=== PATIENT | female | born 1955 | race Caucasian/White ===

== ENCOUNTER 2022-01-14 17:03 | Observation (INO) ==
--- NOTE | 2022-01-14 17:30 | Emergency Department Note ---
HPI General Chief complaint: Urogenital-Female Stated complaint: anxiety, UTI, not feeling herself Time Seen by Provider: 01/14/22 17:07 Source: patient and EMS Mode of arrival: EMS Limitations: no limitations History of Present Illness HPI Narrative: Narrative: 66 yo F w/ h/o recurrent UTI, anxiety, seasonal allergies p/w RUE paresthesia, generalized weakness, shakiness, and dysuria. She reports that she has had multiple recent visits to urgent/minor care w/ UTI Sx, primarily dysuria. She has recently completed a course of cipro and felt well, but then last night started to have recurrent dysuria and bladder pain after voiding. Today, she began to feel weak (which she reports is generalized) and shaky, and then developed RUE paresthesia, which has been constant since onset w/ no aggravating/alleviating factors. The onset of Sx was sometime between noon and 14:00, she cannot be sure of exactly when in that time frame. Subsequently she felt anxious. She presented to minor care where she was noted to be diaphoretic and tachycardic and was sent here for further evaluation. Related Data Home Medications Medication Instructions Recorded Confirmed diphenhydramine HCl 25 mg capsule 50 mg PO QHS PRN 12/12/20 01/14/22 (Benadryl) melatonin 5 mg capsule 5 mg PO HS PRN cap 12/12/20 01/14/22 Allergy (diphenhydramine) 50 mg Q8H PRN 01/14/22 01/14/22 Allergies Allergy/AdvReac Type Severity Reaction Status Date / Time Penicillins Allergy Unknown Too long Verified 01/14/22 17:06 ago to remember. Streptomycin Allergy Unknown Too long Verified 01/14/22 17:06 ago to remember Sulfa (Sulfonamide Allergy Unknown Too long Verified 01/14/22 17:06 Antibiotics) ago to remember codeine AdvReac Mild Nausea/vomi Verified 01/15/22 05:44 ting gluten AdvReac Mild Pass out Verified 01/15/22 05:44 morphine AdvReac Mild Hallucinati Verified 01/15/22 05:44 ng Review of Systems ROS ROS Narrative: Narrative: All systems ED: reviewed and negative except as stated. [facility] Narrative Patient History Narrative: Narrative: Medical/Surgical/Family History All Active Problems (Updated 01/14/22 @ 18:29 by Sina Dominguez MD) Paresthesia of right upper extremity (Acute) Dysuria (Acute) Generalized weakness (Acute) Anxiety (Acute) UTI (urinary tract infection) (Acute) Pharyngitis (Acute) Elevated blood pressure reading in office without diagnosis of hypertension (Acute) Anxiety and depression (Acute) Grief at loss of child (Acute) Encounter for Papanicolaou smear of cervix (Acute) Pharyngitis (Acute) Atypical chest pain (Acute) Anxiety about health (Acute) Swelling of throat (Acute) Throat discomfort (Acute) Medicare annual wellness visit, initial (Acute) Vaginal pruritus (Acute) Dysuria (Acute) Urinary tract infection (Acute 07/05/08) Seizures (Chronic) Postmenopausal bleeding (Chronic) Ovarian cyst (Chronic) Fibroid, uterine (Chronic) Allergic rhinitis (Chronic) Vasovagal syncope (Chronic) Medical History Allergic rhinitis hay fever Burn Recorded 06/12/11 Palmer from hot water and vegetables on her chest and the sternal and left medial breast area, healing. Fibroid, uterine 2008 Gastric ulcer, chronic Unspecified type Medicare annual wellness visit, initial Ovarian cyst Cysts x 2. 1 on the right, 1.1, and the cyst on the left was 0.4. Postmenopausal bleeding 2007 Post menopausal spotting x 1. Seizures As a child. Urinary tract infection (07/05/08) UTI (urinary tract infection) Vasovagal syncope Surgical History History of appendectomy History of cholecystectomy Recorded 06/12/11 History of colonoscopy In about 2002. Says she won't do another one History of ovarian resection Recorded 06/12/11 Wedge resection. With infertility difficulties. History of tonsillectomy Family History Father Pavel's disease Unknown Crohn's disease Essential hypertension Disorder of metabolism hypoglycemia, unspecified Sister , from HF Cardiac disease Mother Acute myocardial infarction Myelodysplastic syndrome Social History Smoking Status: Never smoker Alcohol Intake Frequency: a few times a month Substance Use: does not use Exam Narrative Narrative: Narrative: General Limitations: no limitations General appearance: Present alert and in no apparent distress Head Head: Present atraumatic and normocephalic Eye Eye: Present normal appearance, PERRL and EOMI; Absent nystagmus ENT ENT: Present normal oropharynx and mucous membranes moist Neck Neck: Present normal inspection Chest Chest: Present normal inspection and symmetric chest wall rise Respiratory Respiratory: Present normal lung sounds bilaterally; Absent respiratory distress or accessory muscle use Cardiovascular Cardiovascular: Present regular rate, normal rhythm, +S1, +S2 and other (2+ B/L radial and DP pulses); Absent systolic murmur or diastolic murmur Adbominal Abdominal: Present soft and normal bowel sounds; Absent distention or tenderness Extremities Extremities: Absent pedal edema Neurological Neurological: Present alert, oriented X3 and other (NIHSS - 1 (decreased sensation over entire RUE). No facial droop, tongue deviation, no aphasia/dysarthria, visual pablo intact, intact sensation other than mild decrease RUE, intact strength all 4 limbs, intact finger-nose and heel-carlos, no neglect) Psychiatric Psychiatric: Present anxious Skin Skin: Present warm (WNL) and dry Course Vital Signs Vital signs: Vital Signs Temperature 97.7 F 01/14/22 17:04 Pulse Rate 100 H 01/14/22 17:04 Respiratory Rate 20 01/14/22 17:04 Blood Pressure 165/86 01/14/22 17:04 Pulse Oximetry (%) 98 01/14/22 17:04 Temperature 98.1 F 01/15/22 03:35 Pulse Rate 79 01/15/22 03:35 Respiratory Rate 16 01/15/22 03:35 Blood Pressure 138/71 01/15/22 03:35 Pulse Oximetry (%) 96 01/15/22 03:35 [facility] Narrative Medical decision making narrative: Narrative: 66 yo F w/ h/o recurrent UTI, anxiety, seasonal allergies p/w RUE paresthesia, generalized weakness, shakiness, and dysuria. DDx - CVA, ACS, aortic pathology, sepsis, metabolic/electrolyte d/o, arrhythmia, medication effect, anxiety 17:38. Pt was triaged as UTI Sx, however on my evaluation she reports RUE paresthesia. I have completed a full NIHSS evaluation and she has a score of 1 for mild decreased sensation in the RUE. Her Sx began between noon and 1400, at this point she is likely out of the window for tPA, but could be an endovascular candidate. We will proceed w/ acute stroke W/U but also consider cardiac and infectious etiologies. For the latter, UTI seems less likely w/ reassuring UA from minor care and a negative UCx from 01/04. Will closely monitor while proceeding w/ W/U. She also reports using a suprapubic lidocaine patch earlier today but clinically I do not feel that LAST or other complications of lidocaine are likely the source of Sx. 18:25. I d/w Dr Salguero. We reviewed the Hx, exam and her progress in the ED (she just reported to her RN that maybe she also had RLE paresthesia, and may have had whole body paresthesia earlier). We reviewed the CT findings as well. He reports that she is not an endovascular candidate w/ only mild paresthesia present, and given the timeframe she is not a tPA candidate. He feels that CVA is less likely but still possible and she should be admitted and have MRI/MRA. 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 Her EKG shows no ischemia or arrhythmia. She is clinically not septic. 20:26 The remainder of her W/U has been unremarkable and the hospitalist will admit. Lab Data Result diagrams: 01/15/22 05:18 01/15/22 05:18 Labs: Lab Results 01/14/22 01/14/22 01/14/22 Range/Units 17:45 17:59 17:59 WBC 7.8 (4.5-11.0) K/mcL RBC 4.30 (3.59-5.38) M/mcL Hgb 12.9 (11.2-15.7) g/dL Hct 37.6 (34.1-44.9) % MCV 87.4 (80.0-100.0) fL MCH 30.0 (26.0-34.0) pg MCHC 34.3 (31.0-36.0) g/dL RDW 12.2 (11.5-14.5) % Plt Count 234 (140-440) K/mcL MPV 10.0 (7.4-10.4) fL Neut % (Auto) 75.1 (38.0-78.0) % Lymph % (Auto) 18.2 (15.5-49.0) % [place] % (Auto) 5.8 (1.0-12.0) % Eos % (Auto) 0.4 (0.0-7.0) % Baso % (Auto) 0.5 (0.0-2.0) % Lymph # (Auto) 1.42 L (1.50-4.80) K/mcL [place] # (Auto) 0.45 (0.10-0.90) K/mcL Eos # (Auto) 0.03 (0.00-0.70) K/mcL Baso # (Auto) 0.04 (0.00-0.30) K/mcL Absolute Neutrophils 5.86 (1.80-8.00) K/mcL POC PT (11.9-14.5) PT 14.1 (11.9-14.5) sec POC INR (0.8-1.2) INR 1.0 (0.9-1.1) APTT 31.5 (20.0-37.0) sec Sodium (133-145) mmol/L Potassium (3.3-5.1) mmol/L Chloride (96-108) mmol/L Carbon Dioxide (22-30) mmol/L Anion Gap (8.0-16.0) BUN (8-23) mg/dL Creatinine (0.6-1.1) mg/dL GFR Calculation Glucose (70-105) mg/dL Calcium (8.6-10.4) mg/dL Total Bilirubin (0.1-1.0) mg/dL AST (<32) U/L ALT (<40) U/L Alkaline Phosphatase (39-117) U/L Total Creatine Kinase (24-170) U/L CK-MB (CK-2) (<3.7) ng/mL Troponin T (<0.03) ng/mL Total Protein (5.9-8.4) gm/dL Albumin (3.2-5.2) gm/dL Globulin (2.2-3.7) gm/dL Albumin/Globulin Ratio (1.0-2.3) Urine Color Straw Urine Appearance Clear (Clear) Urine pH 7.0 (5.0-9.0) Ur Specific [place] 1.005 (1.000-1.035) Urine Protein Negative (Negative) mg/dL Urine Glucose (UA) Negative (Negative) mg/dL Urine Ketones 5 A (Negative) mg/dL Urine Occult Blood Negative (Negative) mg/dL Urine Nitrate Negative (Negative) Urine Bilirubin Negative (Negative) mg/dL Urine Urobilinogen Negative mg/dL Ur Leukocyte Esterase Negative (Negative) /uL Urine RBC 1 (0-3) /hpf Urine WBC < 1 (0-4) /hpf Ur Squamous Epith Cells < 1 (0-4) /hpf Urine Bacteria None (0) /hpf Ur Culture Indicated? No POC Troponin I (0.02-0.08) 01/14/22 01/14/22 01/14/22 Range/Units 17:59 17:59 17:59 WBC (4.5-11.0) K/mcL RBC (3.59-5.38) M/mcL Hgb (11.2-15.7) g/dL Hct (34.1-44.9) % MCV (80.0-100.0) fL MCH (26.0-34.0) pg MCHC (31.0-36.0) g/dL RDW (11.5-14.5) % Plt Count (140-440) K/mcL MPV (7.4-10.4) fL Neut % (Auto) (38.0-78.0) % Lymph % (Auto) (15.5-49.0) % [place] % (Auto) (1.0-12.0) % Eos % (Auto) (0.0-7.0) % Baso % (Auto) (0.0-2.0) % Lymph # (Auto) (1.50-4.80) K/mcL [place] # (Auto) (0.10-0.90) K/mcL Eos # (Auto) (0.00-0.70) K/mcL Baso # (Auto) (0.00-0.30) K/mcL Absolute Neutrophils (1.80-8.00) K/mcL POC PT 12.7 (11.9-14.5) PT (11.9-14.5) sec POC INR 1.1 (0.8-1.2) INR (0.9-1.1) APTT (20.0-37.0) sec Sodium 137 (133-145) mmol/L Potassium 3.7 (3.3-5.1) mmol/L Chloride 103 (96-108) mmol/L Carbon Dioxide 20 L (22-30) mmol/L Anion Gap 14.0 (8.0-16.0) BUN 15 (8-23) mg/dL Creatinine 0.8 (0.6-1.1) mg/dL GFR Calculation 75 Glucose 106 H (70-105) mg/dL Calcium 9.5 (8.6-10.4) mg/dL Total Bilirubin 0.4 (0.1-1.0) mg/dL AST 19 (<32) U/L ALT 16 (<40) U/L Alkaline Phosphatase 88 (39-117) U/L Total Creatine Kinase 69 (24-170) U/L CK-MB (CK-2) 1.8 (<3.7) ng/mL Troponin T < 0.01 (<0.03) ng/mL Total Protein 7.0 (5.9-8.4) gm/dL Albumin 4.5 (3.2-5.2) gm/dL Globulin 2.5 (2.2-3.7) gm/dL Albumin/Globulin Ratio 1.8 (1.0-2.3) Urine Color Urine Appearance (Clear) Urine pH (5.0-9.0) Ur Specific [place] (1.000-1.035) Urine Protein (Negative) mg/dL Urine Glucose (UA) (Negative) mg/dL Urine Ketones (Negative) mg/dL Urine Occult Blood (Negative) mg/dL Urine Nitrate (Negative) Urine Bilirubin (Negative) mg/dL Urine Urobilinogen mg/dL Ur Leukocyte Esterase (Negative) /uL Urine RBC (0-3) /hpf Urine WBC (0-4) /hpf Ur Squamous Epith Cells (0-4) /hpf Urine Bacteria (0) /hpf Ur Culture Indicated? POC Troponin I (0.02-0.08) 01/14/22 Range/Units 18:50 WBC (4.5-11.0) K/mcL RBC (3.59-5.38) M/mcL Hgb (11.2-15.7) g/dL Hct (34.1-44.9) % MCV (80.0-100.0) fL MCH (26.0-34.0) pg MCHC (31.0-36.0) g/dL RDW (11.5-14.5) % Plt Count (140-440) K/mcL MPV (7.4-10.4) fL Neut % (Auto) (38.0-78.0) % Lymph % (Auto) (15.5-49.0) % [place] % (Auto) (1.0-12.0) % Eos % (Auto) (0.0-7.0) % Baso % (Auto) (0.0-2.0) % Lymph # (Auto) (1.50-4.80) K/mcL [place] # (Auto) (0.10-0.90) K/mcL Eos # (Auto) (0.00-0.70) K/mcL Baso # (Auto) (0.00-0.30) K/mcL Absolute Neutrophils (1.80-8.00) K/mcL POC PT (11.9-14.5) PT (11.9-14.5) sec POC INR (0.8-1.2) INR (0.9-1.1) APTT (20.0-37.0) sec Sodium (133-145) mmol/L Potassium (3.3-5.1) mmol/L Chloride (96-108) mmol/L Carbon Dioxide (22-30) mmol/L Anion Gap (8.0-16.0) BUN (8-23) mg/dL Creatinine (0.6-1.1) mg/dL GFR Calculation Glucose (70-105) mg/dL Calcium (8.6-10.4) mg/dL Total Bilirubin (0.1-1.0) mg/dL AST (<32) U/L ALT (<40) U/L Alkaline Phosphatase (39-117) U/L Total Creatine Kinase (24-170) U/L CK-MB (CK-2) (<3.7) ng/mL Troponin T (<0.03) ng/mL Total Protein (5.9-8.4) gm/dL Albumin (3.2-5.2) gm/dL Globulin (2.2-3.7) gm/dL Albumin/Globulin Ratio (1.0-2.3) Urine Color Urine Appearance (Clear) Urine pH (5.0-9.0) Ur Specific [place] (1.000-1.035) Urine Protein (Negative) mg/dL Urine Glucose (UA) (Negative) mg/dL Urine Ketones (Negative) mg/dL Urine Occult Blood (Negative) mg/dL Urine Nitrate (Negative) Urine Bilirubin (Negative) mg/dL Urine Urobilinogen mg/dL Ur Leukocyte Esterase (Negative) /uL Urine RBC (0-3) /hpf Urine WBC (0-4) /hpf Ur Squamous Epith Cells (0-4) /hpf Urine Bacteria (0) /hpf Ur Culture Indicated? POC Troponin I 0 L (0.02-0.08) EKG Data EKG #1: EKG attestation: Yes I reviewed and interpreted this EKG. and Yes There are no EKG findings of acute coronary syndrome EKG results narrative: Sinus rate of 97 Normal VA, QRS, QT/QTc intervals No STEMI, DeWinters, Wellens, Brugada Similar to previous EKG CC TIME Critical Care Time Attestation: Approximately 35 minutes of critical care time was used in order to assess and manage the high probability of imminent or life threatening deterioration to the CUSTOMER CARE SPECIALIST which required my highest level of preparedness and interventions with frequent patient assessments. This time is excluding time spent on separately billable procedures. Discharge Plan Patient/Caregiver Discharge Instructions Pt seen by CMV DRIVER/PA only: No Clinical Impression: Paresthesia of right upper extremity, Dysuria, Generalized weakness Patient Disposition: Xfer As Inpt ([facility]) Condition: Fair Discharge Date/Time: 01/14/22 21:27
--- NOTE | 2022-01-14 17:45 | Cat Scan Report ---
CLINICAL INFORMATION: Postero- COMPARISON: None. TECHNIQUE: 2.5 mm helical slices were obtained in the skull base to vertex. Following reconstruction, axial reformatted images were reviewed at bone and parenchymal windows. The exam was performed using radiation dose optimization techniques including, but not limited to, automated exposure control, adjustment of the mA and/or kV according to patient size and use of iterative reconstruction technique. FINDINGS: The ventricles, sulci, fissures, and cisterns are symmetrically enlarged compatible with mild age-related atrophy. No extra-axial fluid collections are identified. Mild patchy chronic ischemic changes, in the deep cerebral white matter, are expected for age. There is no hemorrhage, mass effect, or edema. Bone windows show no osseous abnormality. IMPRESSION: Mild atrophy and chronic ischemic changes in the deep cerebral white matter-expected for age. No acute findings Small air-fluid level in the sphenoid sinus is compatible with sphenoid sinusitis. Interpreted and Authenticated by: Terrell Manning 01/14/22
[2022-01-14 18:02] LABS: POC INR 1.1 (0.8-1.2); POC Pro Time 12.7 (11.9-14.5)
[2022-01-14 18:52] LABS: Basophils # (Auto) 0.04 K/mcL (0.00-0.30); Basophils % (Auto) 0.5 % (0.0-2.0); Eosinophils # (Auto) 0.03 K/mcL (0.00-0.70); Eosinophils % (Auto) 0.4 % (0.0-7.0); Hematocrit 37.6 % (34.1-44.9); Hemoglobin 12.9 g/dL (11.2-15.7); Lymphocytes # (Auto) 1.42 K/mcL (1.50-4.80); Lymphocytes % (Auto) 18.2 % (15.5-49.0); Mean Cell Volume 87.4 fL (80.0-100.0); Mean Corpuscular HGB Conc 34.3 g/dL (31.0-36.0); Monocytes # (Auto) 0.45 K/mcL (0.10-0.90); Monocytes % (Auto) 5.8 % (1.0-12.0); Neutrophils % (Auto) 75.1 % (38.0-78.0); Platelet Count 234 K/mcL (140-440); Red Cell Distribution Width 12.2 % (11.5-14.5); WBC 7.8 K/mcL (4.5-11.0)
[2022-01-14 19:10] LABS: Partial Thromboplastin Time 31.5 sec (20.0-37.0)
[2022-01-14 19:11] LABS: Prothrombin Time 14.1 sec (11.9-14.5)
[2022-01-14 19:22] LABS: ALT/SGPT 16 U/L (<40); AST/SGOT 19 U/L (<32); Albumin 4.5 gm/dL (3.2-5.2); Albumin/Globulin Ratio 1.8 (1.0-2.3); Alkaline Phosphatase 88 U/L (39-117); Bilirubin,Total 0.4 mg/dL (0.1-1.0); Blood Urea Nitrogen 15 mg/dL (8-23); Calcium 9.5 mg/dL (8.6-10.4); Carbon Dioxide 20 mmol/L (22-30); Chloride 103 mmol/L (96-108); Creatine Kinase 69 U/L (24-170); Creatine Kinase MB 1.8 ng/mL (<3.7); Globulin 2.5 gm/dL (2.2-3.7); Glomerular Filtration Rate 75; Glucose 106 mg/dL (70-105)
[2022-01-14 19:43] LABS: Appearance,Urine CLEAR (Clear); Bilirubin,Urine Negative (Negative); Color,Urine STRAW; Culture Indicated,Urine No; Glucose,Urine (UA) Negative (Negative); Ketones,Urine 5 mg/dL (Negative); Leukocyte Esterase,Urine Negative /uL (Negative); Nitrate,Urine Negative (Negative); Protein,Urine Negative (Negative); Specific Gravity,Urine 1.005 (1.000-1.035); Urine Blood Negative (Negative); Urine RBC 1 /hpf (0-3); Urine Squamous Epithelial Cell < 1 /hpf (0-4); Urine WBC < 1 /hpf (0-4); Urobilinogen,Urine Negative
[2022-01-14] MEDS ORDERED: LORazepam 2 MG/ML ORAL.SOL PO ONE (20:42)
[2022-01-14] MEDS ORDERED: LORazepam 1 MG TABLET PO ONE (20:51)
[2022-01-14] MEDS ORDERED: ACETAMINOPHEN 325 MG TABLET PO PRN (20:58)
[2022-01-14] MEDS ORDERED: CALCIUM CARBONATE 500 MG TAB.CHEW CHEWED PRN (20:58)
[2022-01-14] MEDS ORDERED: KETOROLAC 30 MG/ML VIAL IV PRN (20:58)
[2022-01-14] MEDS ORDERED: PROCHLORPERAZINE 10 MG/2 ML VIAL IV PRN (20:58)
[2022-01-14] MEDS ORDERED: traZODone HCL 50 MG TABLET PO PRN (20:58)
[2022-01-14] MEDS ORDERED: IPRATROPIUM/ALBUTEROL 3 ML AMPUL.NEB NEB PRN (20:58)
[2022-01-14] MEDS ORDERED: MAG HYDROX/AL HYDROX/SIMETH 30 ML ORAL.SUSP PO PRN (20:58)
[2022-01-14] MEDS ORDERED: ONDANSETRON 4 MG/2 ML VIAL IV PRN (20:58)
[2022-01-14] MEDS ORDERED: SENNOSIDES 1 TABLET PO SCH (21:00)
[2022-01-14] MEDS ORDERED: 0.9 % SODIUM CHLORIDE 1,000 ML IV SCH (21:00)
--- NOTE | 2022-01-14 21:04 | Internal Med History&Physical ---
HPI History of Present Illness Patient information: Note initiated : 01/14/22 at 9:04 pm Service Date, if different from initiated Date: [] Patient: Montse Foote a 66 y/o F admitted on for anxiety, UTI, not feeling herself. Chief Complaint: [] History of present illness: Ms. Foote is a 66 year old F This is a 66-year-old female with a history of recurrent dysuria and suspected UTI was brought to the ER because of her bladder symptoms and bladder spasms. According to the patient she was suspected having UTI but her urine culture has been negative x2 in the past but patient still believes she has UTI and she is just finished antibiotic course and was brought to the ER because of her bladder symptoms. During the encounter upon review of system patient mentions some paresthesia and the ED physician was concerned about stroke. Her CT scan in the ED was unremarkable. During my encounter patient's symptoms completely disappeared but her history was typical for panic attack hyperventilation- hypocalcemia induced paresthesia. Patient reportedly having similar episodes in the past whenever she has hyperventilating. Her symptoms completely disappeared during my encounter Constitutional Constitutional: Absent daytime sleepiness, fatigue, fever(s), frequent falls, increased appetite, lethargy, night sweats, snoring or weight gain EENT Eyes: Absent floaters, loss of peripheral vision, photophobia or spots in vision Nose, mouth and throat: Absent dizziness, epistaxis, headache(s) or mouth lesions Cardiovascular Cardiovascular: Absent edema, leg edema or orthopnea Respiratory Respiratory: Absent hemoptysis, snoring, chest congestion or pain with cough Gastrointestinal Gastrointestinal: Absent diarrhea, early satiety, heartburn or loose stools Genitourinary Genitourinary: Present dysuria and urinary urgency Musculoskeletal Musculoskeletal: Present numbness and tingling Neurological Neurological: Present behavioral changes, paresthesias and tingling; Absent abnormal gait, abnormal speech, burning sensations, confusion, convulsions, disequilibrium, dizziness, focal weakness, frequent falls or loss of vision Psychiatric Psychiatric: Present abnormal sleep pattern, anxiety, behavioral changes, difficulty concentrating, irritability, mood swings and panic attacks PFSH PFSH All Active Problems (Updated 01/14/22 @ 18:29 by Sina Dominguez MD) Paresthesia of right upper extremity (Acute) Dysuria (Acute) Generalized weakness (Acute) Anxiety (Acute) UTI (urinary tract infection) (Acute) Pharyngitis (Acute) Elevated blood pressure reading in office without diagnosis of hypertension (Acute) Anxiety and depression (Acute) Grief at loss of child (Acute) Encounter for Papanicolaou smear of cervix (Acute) Pharyngitis (Acute) Atypical chest pain (Acute) Anxiety about health (Acute) Swelling of throat (Acute) Throat discomfort (Acute) Medicare annual wellness visit, initial (Acute) Vaginal pruritus (Acute) Dysuria (Acute) Urinary tract infection (Acute 07/05/08) Seizures (Chronic) Postmenopausal bleeding (Chronic) Ovarian cyst (Chronic) Fibroid, uterine (Chronic) Allergic rhinitis (Chronic) Vasovagal syncope (Chronic) Medical History Allergic rhinitis hay fever Burn Recorded 06/12/11 [place] from hot water and vegetables on her chest and the sternal and left medial breast area, healing. Fibroid, uterine 2008 Gastric ulcer, chronic Unspecified type Medicare annual wellness visit, initial Ovarian cyst Cysts x 2. 1 on the right, 1.1, and the cyst on the left was 0.4. Postmenopausal bleeding 2007 Post menopausal spotting x 1. Seizures As a child. Urinary tract infection (07/05/08) UTI (urinary tract infection) Vasovagal syncope Surgical History History of appendectomy History of cholecystectomy Recorded 06/12/11 History of colonoscopy In about 2002. Says she won't do another one History of ovarian resection Recorded 06/12/11 Wedge resection. With infertility difficulties. History of tonsillectomy Family History Father Aiken's disease Unknown Crohn's disease Essential hypertension Disorder of metabolism hypoglycemia, unspecified Sister , from HF Cardiac disease Mother Acute myocardial infarction Myelodysplastic syndrome Social History household members: spouse housing: house lives independently: Yes marital status: occupational status: employed other: 3 brothers/children/father/several grandchildren alcohol intake frequency: a few times a month substance use type: does not use MEDS/ALLERGIES Home Medications and Allergies Home Medications Medication Instructions Recorded Confirmed Type diphenhydramine HCl 25 mg capsule 50 mg PO QHS PRN 12/12/20 01/14/22 History (Benadryl) melatonin 5 mg capsule 5 mg PO HS PRN cap 12/12/20 01/14/22 History Allergy (diphenhydramine) 50 mg Q8H PRN 01/14/22 01/14/22 History amlodipine 5 mg tablet 5 mg PO QDAY #30 tab 01/15/22 Rx aspirin 81 mg capsule 81 mg PO QDAY #90 cap 01/15/22 Rx quetiapine 25 mg tablet (Seroquel) 12.5 mg PO QHS PRN #30 tab 01/15/22 Rx Allergies Allergy/AdvReac Type Severity Reaction Status Date / Time Penicillins Allergy Unknown Too long Verified 01/14/22 17:06 ago to remember. Streptomycin Allergy Unknown Too long Verified 01/14/22 17:06 ago to remember Sulfa (Sulfonamide Allergy Unknown Too long Verified 01/14/22 17:06 Antibiotics) ago to remember codeine AdvReac Mild Nausea/vomi Verified 01/15/22 05:44 ting gluten AdvReac Mild Pass out Verified 01/15/22 05:44 morphine AdvReac Mild Hallucinati Verified 01/15/22 05:44 ng EXAM Constitutional Vitals: Temp Pulse Resp BP Pulse Ox 97.7 F 99 H 18 162/79 97 01/14/22 17:04 01/14/22 19:30 01/14/22 19:30 01/14/22 18:31 01/14/22 19:30 General appearance: no acute distress Head Head exam: Present atraumatic, normal inspection and normocephalic Expanded Head Exam Head exam: Absent CSF otorrhea, hematoma or raccoon eyes Eye Eye exam: Present PERRL; Absent conjunctival injection or nystagmus ENT ENT exam: Present mucous membranes moist, normal exam and normal oropharynx Respiratory Respiratory exam: Present normal respiratory exam and CTAB; Absent accessory muscle use, respiratory distress or wheezes GI/Abdominal GI/Abdominal exam: Present normal bowel sounds and soft; Absent distended Expanded Upper Extremity Exam General: Present normal inspection; Absent abrasion, amputation, avulsion, foreign body or laceration Back Exam Back exam: Present normal inspection; Absent CVA tenderness (L), CVA tenderness (R) or muscle spasm Neurological Exam Neurological exam: Present alert, CN II-XII intact, normal gait, oriented X3 and reflexes normal; Absent abnormal gait, altered or motor sensory deficit Expanded Neurological Exam Neurological exam: Present protecting the airway; Absent ataxia, expressive aphasia, inattentive, memory loss-recent event, memory loss-remote event, receptive aphasia, total aphasia or tremor Patient oriented to: Present person, place and time Cerebellar function: finger to nose: Normal Upper motor neuron: Babinski sign: Normal, pronator drift: Normal and sensory extinction: Normal Psychiatric Psychiatric exam: Present anxious Additional comments: Significant anxiety-she was trying to leave [place] when we talked about getting an MRI Skin Skin exam: Absent abrasion, dry or mottled DATA Data Completed and Pending Labs: Labs from last 24 hours 01/14/22 01/14/22 01/14/22 18:50 17:59 17:59 WBC RBC Hgb Hct MCV MCH MCHC RDW Plt Count MPV Neut % (Auto) Lymph % (Auto) [place] % (Auto) Eos % (Auto) Baso % (Auto) Lymph # (Auto) [place] # (Auto) Eos # (Auto) Baso # (Auto) Absolute Neutrophils POC PT 12.7 PT POC INR 1.1 INR APTT Sodium Potassium Chloride Carbon Dioxide Anion Gap BUN Creatinine GFR Calculation Glucose Calcium Total Bilirubin AST ALT Alkaline Phosphatase Total Creatine Kinase CK-MB (CK-2) Troponin T < 0.01 Total Protein Albumin Globulin Albumin/Globulin Ratio Urine Color Urine Appearance Urine pH Ur Specific [place] Urine Protein Urine Glucose (UA) Urine Ketones Urine Occult Blood Urine Nitrate Urine Bilirubin Urine Urobilinogen Ur Leukocyte Esterase Urine RBC Urine WBC Ur Squamous Epith Cells Urine Bacteria Ur Culture Indicated? POC Troponin I 0 L 01/14/22 01/14/22 01/14/22 17:59 17:59 17:59 WBC 7.8 RBC 4.30 Hgb 12.9 Hct 37.6 MCV 87.4 MCH 30.0 MCHC 34.3 RDW 12.2 Plt Count 234 MPV 10.0 Neut % (Auto) 75.1 Lymph % (Auto) 18.2 [place] % (Auto) 5.8 Eos % (Auto) 0.4 Baso % (Auto) 0.5 Lymph # (Auto) 1.42 L [place] # (Auto) 0.45 Eos # (Auto) 0.03 Baso # (Auto) 0.04 Absolute Neutrophils 5.86 POC PT PT 14.1 POC INR INR 1.0 APTT 31.5 Sodium 137 Potassium 3.7 Chloride 103 Carbon Dioxide 20 L Anion Gap 14.0 BUN 15 Creatinine 0.8 GFR Calculation 75 Glucose 106 H Calcium 9.5 Total Bilirubin 0.4 AST 19 ALT 16 Alkaline Phosphatase 88 Total Creatine Kinase 69 CK-MB (CK-2) 1.8 Troponin T Total Protein 7.0 Albumin 4.5 Globulin 2.5 Albumin/Globulin Ratio 1.8 Urine Color Urine Appearance Urine pH Ur Specific [place] Urine Protein Urine Glucose (UA) Urine Ketones Urine Occult Blood Urine Nitrate Urine Bilirubin Urine Urobilinogen Ur Leukocyte Esterase Urine RBC Urine WBC Ur Squamous Epith Cells Urine Bacteria Ur Culture Indicated? POC Troponin I 01/14/22 17:45 WBC RBC Hgb Hct MCV MCH MCHC RDW Plt Count MPV Neut % (Auto) Lymph % (Auto) [place] % (Auto) Eos % (Auto) Baso % (Auto) Lymph # (Auto) [place] # (Auto) Eos # (Auto) Baso # (Auto) Absolute Neutrophils POC PT PT POC INR INR APTT Sodium Potassium Chloride Carbon Dioxide Anion Gap BUN Creatinine GFR Calculation Glucose Calcium Total Bilirubin AST ALT Alkaline Phosphatase Total Creatine Kinase CK-MB (CK-2) Troponin T Total Protein Albumin Globulin Albumin/Globulin Ratio Urine Color Straw Urine Appearance Clear Urine pH 7.0 Ur Specific [place] 1.005 Urine Protein Negative Urine Glucose (UA) Negative Urine Ketones 5 A Urine Occult Blood Negative Urine Nitrate Negative Urine Bilirubin Negative Urine Urobilinogen Negative Ur Leukocyte Esterase Negative Urine RBC 1 Urine WBC < 1 Ur Squamous Epith Cells < 1 Urine Bacteria None Ur Culture Indicated? No POC Troponin I A/P Narrative Plan of Treatment: Generalized paresthesia Probably due to panic attack and hyperventilation Patient reportedly having recurrent panic attacks and severe anxiety patient had an episode yesterday and following that patient reported some episodes of paresthesia. This was following hyperventilation Patient was evaluated at the outpatient clinic and was tachycardic-sinus tachycardia Patient's history is typical for the last paresthesia from hyperventilation Patient was evaluated in the ED and was concerned about TIA Patient's symptoms completely disappeared during my encounter No focal neuro deficit Patient does not have any risk factors-patient get high blood pressure whitecoat hypertension and with anxiety Plan Unable to obtain MRI even after lorazepam multiple doses patient is very anxious Patient was started on aspirin She needs to establish care with a psychiatrist Patient has severe insomnia and started on Seroquel 12.5 at bedtime with her anxiety. She tried benzodiazepines in the past and not helpful Patient needs to follow-up with a primary care provider and if she continued having symptoms she needs to establish with a neurology Hypertension This is most likely due to anxiety Patient was started on amlodipine 5 mg Advised the patient to recheck the blood pressure at home and follow-up with the primary care and if her blood pressure at home is normal then can discontinue amlodipine Time Spent With Patient Time: Total time spent is greater than 50% in coordination of care (as documented) at patient's floor/unit and/or counseling patient:
[2022-01-14] MEDS ORDERED: IOPAMIDOL 100 ML BOTTLE IV ONE (21:28)
[2022-01-14] MEDS: 0.9 % SODIUM CHLORIDE 10 ML SYRINGE IV SCH (21:53)
[2022-01-14] MEDS: DOCUSATE SODIUM 100 MG CAPSULE PO SCH (22:26)
[2022-01-14] MEDS ORDERED: hydrALAZINE 20 MG/ML VIAL IV PRN (22:56)
[2022-01-14] MEDS ORDERED: LORazepam 2 MG/ML VIAL IV PRN (22:58)
[2022-01-14] MEDS: amLODIPine 5 MG TABLET PO SCH (23:41)
[2022-01-14] MEDS ORDERED: amLODIPine 5 MG TABLET ONE (23:48)
[2022-01-15] MEDS ORDERED: diphenhydrAMINE 25 MG CAPSULE PO PRN ×2 (02:28→05:45)
[2022-01-15] MEDS ORDERED: diphenhydrAMINE 25 MG CAPSULE ONE (02:39)
[2022-01-15] MEDS: 0.9 % SODIUM CHLORIDE 10 ML SYRINGE IV SCH (04:49)
[2022-01-15 06:13] LABS: Basophils # (Auto) 0.05 K/mcL (0.00-0.30); Basophils % (Auto) 0.7 % (0.0-2.0); Eosinophils # (Auto) 0.07 K/mcL (0.00-0.70); Hematocrit 36.7 % (34.1-44.9); Hemoglobin 12.5 g/dL (11.2-15.7); Lymphocytes # (Auto) 2.19 K/mcL (1.50-4.80); Mean Cell Volume 89.3 fL (80.0-100.0); Mean Corpuscular HGB Conc 34.1 g/dL (31.0-36.0); Mean Platelet Volume 9.9 fL (7.4-10.4); Monocytes # (Auto) 0.52 K/mcL (0.10-0.90); Monocytes % (Auto) 7.4 % (1.0-12.0); Neutrophils % (Auto) 59.9 % (38.0-78.0); Platelet Count 208 K/mcL (140-440); RBC 4.11 M/mcL (3.59-5.38); Red Cell Distribution Width 12.3 % (11.5-14.5); WBC 7.1 K/mcL (4.5-11.0)
[2022-01-15 06:45] LABS: ALT/SGPT 14 U/L (<40); AST/SGOT 20 U/L (<32); Albumin/Globulin Ratio 1.8 (1.0-2.3); Alkaline Phosphatase 79 U/L (39-117); Bilirubin,Total 0.4 mg/dL (0.1-1.0); Blood Urea Nitrogen 9 mg/dL (8-23); Carbon Dioxide 23 mmol/L (22-30); Chloride 108 mmol/L (96-108); Globulin 2.2 gm/dL (2.2-3.7); Glomerular Filtration Rate 89; Glucose 95 mg/dL (70-105)
[2022-01-15] MEDS ORDERED: KETOROLAC 15 MG/ML VIAL IV PRN (07:15)
[2022-01-15] MEDS ORDERED: PANTOPRAZOLE 40 MG TABLET PO SCH (07:30)
[2022-01-15] MEDS ORDERED: LORazepam 2 MG/ML VIAL IV ONE (08:23)
[2022-01-15] MEDS ORDERED: LORazepam 2 MG/ML VIAL IV PRN (08:24)
[2022-01-15] MEDS: amLODIPine 5 MG TABLET PO SCH (08:41)
[2022-01-15] MEDS: DOCUSATE SODIUM 100 MG CAPSULE PO SCH (08:41)
[2022-01-15] MEDS ORDERED: ASPIRIN 81 MG TAB.CHEW CHEWED SCH (09:00)
--- NOTE | 2022-01-15 10:42 | Discharge Summary ---
Discharge Provider Provider IMPORTANT FOLLOW-UP INFORMATION FOR PCP: Patient information: Note initiated : 01/15/22 at 10:39 am Service Date, if different from initiated Date: [] Patient: Montse Foote 66 y/o F admitted on 01/14/22 for anxiety, UTI, not feeling herself. Chief Complaint: [] Date of admission: 01/14/22 21:27 Discharge date: 01/15/22 Primary care physician: Terrell Collins DO Consults: 01/14/22 Consult to Physician [CONS] Stat Comment: Consulting Provider: Richard Woods Reason For Exam: Physician to Consult 01/14/22 18:19 Consult to Physician [CONS] Stat Comment: Consulting Provider: Alyce Melendez Reason For Exam: Physician to Consult COURSE Hospital Course Hospital course: Generalized paresthesia Probably due to panic attack and hyperventilation Patient reportedly having recurrent panic attacks and severe anxiety patient had an episode yesterday and following that patient reported some episodes of paresthesia. This was following hyperventilation Patient was evaluated at the outpatient clinic and was tachycardic-sinus tachycardia Patient's history is typical for the last paresthesia from hyperventilation Patient was evaluated in the ED and was concerned about TIA Patient's symptoms completely disappeared during my encounter No focal neuro deficit Patient does not have any risk factors-patient get high blood pressure whitecoat hypertension and with anxiety Plan Unable to obtain MRI even after lorazepam multiple doses patient is very anxious Patient was started on aspirin She needs to establish care with a psychiatrist Patient has severe insomnia and started on Seroquel 12.5 at bedtime with her anxiety. She tried benzodiazepines in the past and not helpful Patient needs to follow-up with a primary care provider and if she continued having symptoms she needs to establish with a neurology Hypertension This is most likely due to anxiety Patient was started on amlodipine 5 mg Advised the patient to recheck the blood pressure at home and follow-up with the primary care and if her blood pressure at home is normal then can discontinue amlodipine This is a 66-year-old female with a history of recurrent dysuria and suspected UTI was brought to the ER because of her bladder symptoms and bladder spasms. According to the patient she was suspected having UTI but her urine culture has been negative x2 in the past but patient still believes she has UTI and she is just finished antibiotic course and was brought to the ER because of her bladder symptoms. During the encounter upon review of system patient mentions some paresthesia and the ED physician was concerned about stroke. Her CT scan in the ED was unremarkable. During my encounter patient's symptoms completely disappeared but her history was typical for panic attack hyperventilation- hypocalcemia induced paresthesia. Patient reportedly having similar episodes in the past whenever she has hyperventilating. Her symptoms completely disappeared during my encounter Today we try to obtain an MRI patient was very anxious and having panic attacks she is not even able to attempt the MRI even after multiple doses of lorazepam and Benadryl. Since the patient's clinical evaluation is typical for panic attack and hyperventilation induced paresthesia we will discharge the patient since her CT and CTA is unremarkable and follow-up with her primary care and psychiatric evaluation Discharge diagnosis: Paresthesia-due to panic attacks Time Spent with Patient Time attestation: Total time spent providing and/or coordinating discharge services: Time spent: Greater than 30 minutes EXAM Constitutional Vitals: Temp Pulse Resp BP Pulse Ox 98.4 F 94 H 16 147/72 94 01/15/22 08:00 01/15/22 08:00 01/15/22 08:00 01/15/22 08:00 01/15/22 08:00 General appearance: average body habitus Head Head exam: Present atraumatic and normal inspection Expanded Head Exam Head exam: Absent abrasion, CSF otorrhea or hematoma Eye Eye exam: Present PERRL; Absent conjunctival injection or nystagmus ENT ENT exam: Present normal external ear exam and normal oropharynx; Absent mucous membranes dry Expanded ENT Exam Throat exam: Present normal inspection; Absent post pharyngeal edema or tonsillar exudate Neck Neck exam: Present full ROM and normal inspection; Absent lymphadenopathy or tenderness Respiratory Respiratory exam: Present normal respiratory exam and CTAB; Absent accessory muscle use or respiratory distress Cardiovascular Cardiovascular exam: Present normal rate and rhythm and tachycardia; Absent JVD GI/Abdominal GI/Abdominal exam: Present normal bowel sounds and soft; Absent distended, guarding, pulsatile mass or tenderness Neurological Exam Neurological exam: Present alert, CN II-XII intact, normal gait, oriented X3 and reflexes normal; Absent abnormal gait, altered or motor sensory deficit Discharge Data Data Completed and Pending Labs on day of discharge: Labs from last 24 hours 01/15/22 01/15/22 01/14/22 05:18 05:18 18:50 WBC 7.1 RBC 4.11 Hgb 12.5 Hct 36.7 MCV 89.3 MCH 30.4 MCHC 34.1 RDW 12.3 Plt Count 208 MPV 9.9 Neut % (Auto) 59.9 Lymph % (Auto) 31.0 [place] % (Auto) 7.4 Eos % (Auto) 1.0 Baso % (Auto) 0.7 Lymph # (Auto) 2.19 [place] # (Auto) 0.52 Eos # (Auto) 0.07 Baso # (Auto) 0.05 Absolute Neutrophils 4.24 POC PT PT POC INR INR APTT Sodium 141 Potassium 3.9 Chloride 108 Carbon Dioxide 23 Anion Gap 10.0 BUN 9 Creatinine 0.7 GFR Calculation 89 Glucose 95 Calcium 9.0 Magnesium 2.2 Total Bilirubin 0.4 AST 20 ALT 14 Alkaline Phosphatase 79 Total Creatine Kinase CK-MB (CK-2) Troponin T Total Protein 6.2 Albumin 4.0 Globulin 2.2 Albumin/Globulin Ratio 1.8 Urine Color Urine Appearance Urine pH Ur Specific [place] Urine Protein Urine Glucose (UA) Urine Ketones Urine Occult Blood Urine Nitrate Urine Bilirubin Urine Urobilinogen Ur Leukocyte Esterase Urine RBC Urine WBC Ur Squamous Epith Cells Urine Bacteria Ur Culture Indicated? POC Troponin I 0 L 01/14/22 01/14/22 01/14/22 17:59 17:59 17:59 WBC RBC Hgb Hct MCV MCH MCHC RDW Plt Count MPV Neut % (Auto) Lymph % (Auto) [place] % (Auto) Eos % (Auto) Baso % (Auto) Lymph # (Auto) [place] # (Auto) Eos # (Auto) Baso # (Auto) Absolute Neutrophils POC PT 12.7 PT POC INR 1.1 INR APTT Sodium 137 Potassium 3.7 Chloride 103 Carbon Dioxide 20 L Anion Gap 14.0 BUN 15 Creatinine 0.8 GFR Calculation 75 Glucose 106 H Calcium 9.5 Magnesium Total Bilirubin 0.4 AST 19 ALT 16 Alkaline Phosphatase 88 Total Creatine Kinase 69 CK-MB (CK-2) 1.8 Troponin T < 0.01 Total Protein 7.0 Albumin 4.5 Globulin 2.5 Albumin/Globulin Ratio 1.8 Urine Color Urine Appearance Urine pH Ur Specific [place] Urine Protein Urine Glucose (UA) Urine Ketones Urine Occult Blood Urine Nitrate Urine Bilirubin Urine Urobilinogen Ur Leukocyte Esterase Urine RBC Urine WBC Ur Squamous Epith Cells Urine Bacteria Ur Culture Indicated? POC Troponin I 01/14/22 01/14/22 01/14/22 17:59 17:59 17:45 WBC 7.8 RBC 4.30 Hgb 12.9 Hct 37.6 MCV 87.4 MCH 30.0 MCHC 34.3 RDW 12.2 Plt Count 234 MPV 10.0 Neut % (Auto) 75.1 Lymph % (Auto) 18.2 [place] % (Auto) 5.8 Eos % (Auto) 0.4 Baso % (Auto) 0.5 Lymph # (Auto) 1.42 L [place] # (Auto) 0.45 Eos # (Auto) 0.03 Baso # (Auto) 0.04 Absolute Neutrophils 5.86 POC PT PT 14.1 POC INR INR 1.0 APTT 31.5 Sodium Potassium Chloride Carbon Dioxide Anion Gap BUN Creatinine GFR Calculation Glucose Calcium Magnesium Total Bilirubin AST ALT Alkaline Phosphatase Total Creatine Kinase CK-MB (CK-2) Troponin T Total Protein Albumin Globulin Albumin/Globulin Ratio Urine Color Straw Urine Appearance Clear Urine pH 7.0 Ur Specific [place] 1.005 Urine Protein Negative Urine Glucose (UA) Negative Urine Ketones 5 A Urine Occult Blood Negative Urine Nitrate Negative Urine Bilirubin Negative Urine Urobilinogen Negative Ur Leukocyte Esterase Negative Urine RBC 1 Urine WBC < 1 Ur Squamous Epith Cells < 1 Urine Bacteria None Ur Culture Indicated? No POC Troponin I Discharge Plan Patient/Caregiver Discharge Instructions Activity: increase activity as tolerated Diet: Regular Diet Activity Restrictions/Additional Instructions: Psychiatric evaluation in 1 to 2 weeks for severe anxiety and panic attacks Prescriptions: New quetiapine [Seroquel] 25 mg tablet 12.5 mg PO QHS PRN (Reason: insomnia) Qty: 30 0RF amlodipine 5 mg tablet 5 mg PO QDAY Qty: 30 1RF aspirin 81 mg capsule 81 mg PO QDAY Qty: 90 1RF Continued diphenhydramine HCl [Benadryl] 25 mg capsule 50 mg PO QHS PRN (Reason: Insomnia) 0RF melatonin 5 mg capsule 5 mg PO HS PRN (Reason: Insomnia) 0RF No Action Allergy (diphenhydramine) 50 mg Q8H PRN (Reason: Allergy Symptoms) 0RF Follow Up Plan Follow up with: Terrell Collins DO [Primary Care Provider] - Patient Disposition: Home, Self-Care Plan of Treatment: Generalized paresthesia Probably due to panic attack and hyperventilation Patient reportedly having recurrent panic attacks and severe anxiety patient had an episode yesterday and following that patient reported some episodes of paresthesia. This was following hyperventilation Patient was evaluated at the outpatient clinic and was tachycardic-sinus tachycardia Patient's history is typical for the last paresthesia from hyperventilation Patient was evaluated in the ED and was concerned about TIA Patient's symptoms completely disappeared during my encounter No focal neuro deficit Patient does not have any risk factors-patient get high blood pressure whitecoat hypertension and with anxiety Plan Unable to obtain MRI even after lorazepam multiple doses patient is very anxious Patient was started on aspirin She needs to establish care with a psychiatrist Patient has severe insomnia and started on Seroquel 12.5 at bedtime with her a nxiety. She tried benzodiazepines in the past and not helpful Patient needs to follow-up with a primary care provider and if she continued having symptoms she needs to establish with a neurology Hypertension This is most likely due to anxiety Patient was started on amlodipine 5 mg Advised the patient to recheck the blood pressure at home and follow-up with the primary care and if her blood pressure at home is normal then can discontinue amlodipine Prognosis: Fair Rehab Potential: Fair I certify that the patient requires SNF services: No Overall status at discharge: patient is progressing back to baseline Discharge Orders: Discharge Order (Routine); Ordered 01/15/22 Ordered By: Richard Woods Discharge Comment: Hold DC till we get CTA results QUALITY VTE Deep Vein Thrombosis/Pulmonary Embolism Present on Admission: No
--- NOTE | 2022-01-15 13:33 | Cat Scan Report ---
CLINICAL INFORMATION: Acute CVA COMPARISON: None. TECHNIQUE: 80 cc of [id number]-[id number] were injected intravenously , and using SmartPrep to maximize cerebral arterial opacification, 0.625 mm helical slices were obtained from the skull base through the cerebral vertex. Following reconstruction , sagittal, coronal and axial reformatted images were processed and reviewed at multiple windows and levels. 3D volume rendered and MIP images were acquired at a independent workstation. The exam was performed using radiation dose optimization techniques including, but not limited to, automated exposure control, adjustment of the mA and/or kV according to patient size and use of iterative reconstruction technique. FINDINGS: The intracranial internal carotid, vertebral, basilar, anterior, middle and posterior cerebral arteries and their branches are well-opacified and normal in contour and caliber without significant stenosis, occlusion or other pathology. Superficial/deep cerebral veins and deep venous sinuses are widely patent IMPRESSION: Normal exam Interpreted and Authenticated by: Terrell Manning 01/15/22
--- NOTE | 2022-01-15 13:49 | Cat Scan Report ---
CLINICAL INFORMATION: Acute CVA COMPARISON: None. TECHNIQUE: 80 cc of Isovue-300 were injected intravenously followed by 40 cc of normal saline flush. Using SmartPrep, 0.625 helical slices were obtained from the thoracic aortic arch through the [place] [employer] [place]. Following reconstruction, 2.5 mm sagittal, coronal and axial reformatted images were processed. MIPS , 3-D volume rendering and CPR images were also constructed. The exam was performed using radiation dose optimization techniques including, but not limited to, automated exposure control, adjustment of the mA and/or kV according to patient size and use of iterative reconstruction technique. FINDINGS: The thoracic aortic arch is normal diameter with minimal intimal thickening and conventional aortic branching. The brachiocephalic, both subclavian, both common, internal and external carotid and both vertebral arteries are widely patent without significant abnormality. The thyroid is mildly inhomogeneous with scattered low attenuation foci compatible multinodular adenomatous thyroid goiter. 4 mm of C4 anterior subluxation due to degenerative facet disease appreciated with broad disc protrusion resulting in mild central canal and moderate right C3-4 IV foraminal narrowing IMPRESSION: Thoracic aortic arch, brachiocephalic all carotid, both vertebral and subclavian arteries are widely patent. Multinodular adenomatous thyroid Spine degeneration Interpreted and Authenticated by: Terrell Manning 01/15/22
--- NOTE | 2022-01-17 07:44 | EKG ---
[facility] Minor Care Test Date: 2022-01-14 Pat Name: Montse Foote Department: ED Room: Gender: Female Store Host: KW : [id number] Requested By: Sina Dominguez Order Number: [id number] Reading MD: Eugene Ortega Measurements Intervals [place] Rate: 105 P: 62 SC: 164 QRS: 49 QRSD: 86 T: 48 QT: 348 QTc: 461 Interpretive Statements SINUS TACHYCARDIA Electronically Signed On 01-17-2022 7:41:47 PDT by Eugene Ortega /store/[email or web address]/[id number]
== END 2022-01-15 13:57 | disposition home or self-care (01) ==
LOC: ED 17:03 → MEDSUR 17:03
PROVIDERS: ADMIT Internal Medicine; ATTEND Internal Medicine